=== PATIENT | female | born 1955 ===

== ENCOUNTER 2021-12-27 07:31 | Day surgery (SDC) | payer OTHER ==
[~2021-12-27 07:31] MED LIST: ANASTROZOLE1 MG PO; VALSARTAN-HCTZ1 EAC4 PO
[2021-12-27] MEDS ORDERED: NEURONTIN300 MG PO (16:01)
[2021-12-27] MEDS ORDERED: ULTRAM50 MG PO (16:01)
[2021-12-27] MEDS ORDERED: DERMOPLAST PAIN78 GM TOP (16:01)
[2021-12-27] MEDS ORDERED: KETO10TA2 PO (16:02)
== END 2021-12-27 16:45 | disposition home or self-care (01) ==
LOC: CIR.AMB 07:31
PROVIDERS: ATTEND Surgery
DX: K64.3 Fourth degree hemorrhoids (principal); K64.2 Third degree hemorrhoids; Z20.822 Contact with and (suspected) exposure to COVID-19; I10 Essential (primary) hypertension; Z85.3 Personal history of malignant neoplasm of breast